=== PATIENT | female | born 1940 | race Caucasian/White ===

== ENCOUNTER 2022-09-18 22:59 | Emergency (ER) | payer MEDICARE, BC ==
[~2022-09-18] VITALS: Ht 160 cm; Wt 98.2 kg
[2022-09-18] MEDS ORDERED: FUROSEMIDE20 MG PO (23:46)
[2022-09-18] MEDS ORDERED: CLONAZEPAM0.5 M1 PO (23:46)
[2022-09-18] MEDS ORDERED: SINGULAIR 110 MG/TAB PO (23:47)
[2022-09-18] MEDS ORDERED: GOOD NEIGHBOR L10 MG PO (23:47)
[2022-09-18] MEDS ORDERED: SYNTHROID175 MCG PO (23:47)
[2022-09-18] MEDS ORDERED: ALDACTONE 25MG25 MG PO (23:47)
[2022-09-18] MEDS ORDERED: CLINDAMYCIN 300MG PO (23:49)
[2022-09-18] MEDS ORDERED: MUPIROCIN2% TP (23:49)
[2022-09-18] MEDS ORDERED: ALEVE220 M1 PO (23:51)
[2022-09-18] MEDS ORDERED: ELOCON OINT45 GM TOP (23:52)
[2022-09-18] MEDS ORDERED: PROBIOTIC1 EAC1 PO (23:52)
[2022-09-18] MEDS ORDERED: SUPER B-COMPL400 MCG PO (23:53)
[2022-09-18] MEDS ORDERED: VITAMIN C PUR1000 MG PO (23:55)
[2022-09-18] MEDS ORDERED: WOMEN'S 50 PLU1 EACH PO (23:56)
[2022-09-18] MEDS ORDERED: ZINC50 M4 PO (23:57)
[2022-09-18] MEDS ORDERED: VITAMIN D31250 MC1 PO (23:58)
[2022-09-19 00:15] LABS: URINE APPEARANCE CLOUDY; URINE BILIRUBIN NEGATIVE (NEGATIVE); URINE BLOOD 250 ery/uL (NEGATIVE); URINE COLOR YELLOW; URINE GLUCOSE NEGATIVE (NEGATIVE); URINE KETONE NEGATIVE (NEGATIVE); URINE LEUKOCYTE ESTERASE 2+ (NEGATIVE); URINE PROTEIN(semi-quant) 2+ (NEGATIVE); URINE UROBILINOGEN NORMAL (NORMAL)
[2022-09-19 00:16] LABS: URINE NITRATE POSITIVE (NEGATIVE); URINE WBC >50 /hpf (0-3)
[2022-09-19] MEDS ORDERED: CIPRO500 M1 PO (00:30)
[2022-09-19 00:46] VITALS: BP 142/78
== END 2022-09-19 00:46 | disposition home or self-care (01) ==
LOC: ED 22:59
PROVIDERS: Family Medicine
DX: N39.0 Urinary tract infection, site not specified (principal); E66.9 Obesity, unspecified; Z68.38 Body mass index [BMI] 38.0-38.9, adult; Z88.0 Allergy status to penicillin
CPT/HCPCS: J0696